=== PATIENT | female | born 1985 | race Two or more races ===

== ENCOUNTER 2016-12-15 21:27 | Inpatient (IN) | payer MEDICAID ==
[~2016-12-15] VITALS: Ht 30.5 cm; Wt 77.1 kg
[2016-12-15 22:11] LABS: Basophils # (auto) 0 uL; Basophils % (auto) 0.3 % (0.0-2.0); Eosinophils # (auto) 0 uL; Eosinophils % (auto) 0.1 % (0.0-7.0); Hematocrit 42.7 % (36.0-46.0); Hemoglobin 14.4 g/dL (12.2-16.2); Lymphocytes # (auto) 1.4 uL; Lymphocytes % (auto) 13.8 % (10.0-50.0); Mean Corpuscular Hemoglobin 30.6 pg (28.0-32.0); Mean Corpuscular Hgb Conc. 33.6 g/dL (32.0-36.0); Mean Platelet Volume 7.9 fL (7.4-10.4); Monocytes # (auto) 0.4 uL; Monocytes % (auto) 3.5 % (0.0-12.0); Neutrophils # (auto) 8.6 uL; Neutrophils % (auto) 82.3 % (37.0-80.0); Platelet Count (auto) 407 10^3/uL (140-450); Red Cell Distribution Width 14.8 % (11.6-16.0); White Blood Cell 10.4 10^3/uL (4.4-10.8)
[2016-12-15] MEDS ORDERED: SODIUM CHLORIDE 0.9% 2,000 ML IV ONE (22:45)
[2016-12-15 23:02] LABS: Albumin 4.5 g/dL (3.4-5.0); Anion Gap 16 (5-15); Aspartate Aminotransferase 18 U/L (15-37); BUN/Creatinine Ratio 15.7; Blood Urea Nitrogen 13 mg/dL (7-18); Calcium 8.3 mg/dL (8.5-10.1); Carbon Dioxide 18 mmol/L (21-32); Chloride 103 mmol/L (98-107); GFR African American 104 mL/min; GFR Non-African American 86 mL/min; Glucose 184 mg/dL (74-106); Sodium 137 mmol/L (136-145)
[2016-12-15 23:05] LABS: Alkaline Phosphatase 80 U/L (45-117); Bilirubin, Total < 0.1 mg/dL (0.2-1.0); Total Protein 8.3 g/dL (6.4-8.2)
[2016-12-15 23:16] LABS: Acetaminophen 106.6 ug/mL (10-30); Salicylate 30.4 mg/dL (2.8-20.0)
[2016-12-15 23:18] LABS: Potassium 2.8 mmol/L (3.5-5.1)
[2016-12-15] MEDS ORDERED: ONDANSETRON HCL 4 MG/2 ML VIAL IV ONE (23:30)
[2016-12-15] MEDS ORDERED: POTASSIUM CHL 20 Meq TABLET PO ONE (23:30)
[2016-12-15] MEDS ORDERED: ACETYLCYSTEINE IV ONE (23:30)
[2016-12-15] MEDS ORDERED: D5W 5% IV ONE (23:30)
[2016-12-15] MEDS ORDERED: SODIUM BICARBONATE 8.4 % INJ 50ML VIAL IV ONE (23:30)
[2016-12-15] MEDS ORDERED: ACETYLCYSTEINE 200MG/ML IV SOLN 30ML IV ONE ×2 (23:40→23:43)
[2016-12-16] MEDS ORDERED: ACETYLCYSTEINE IV ONE (00:30)
[2016-12-16] MEDS ORDERED: D5W 5% IV ONE (00:30)
[2016-12-16] MEDS ORDERED: POTASSIUM PHOSPHATE 30 MEQ in SODIUM CHL 0.9% 100 ML IV ONE (01:15)
[2016-12-16] MEDS ORDERED: D5W/SOD CHLO 0.9% 1,000 ML IV ONE (01:15)
[2016-12-16] MEDS ORDERED: SODIUM BICARBONATE 8.4 % INJ 50ML VIAL IV ONE (01:15)
[2016-12-16] MEDS ORDERED: ACETYLCYSTEINE 200MG/ML IV SOLN 30ML IV ONE (01:34)
[2016-12-16] MEDS ORDERED: POTASSIUM CHL 20MEQ/100ML 100 ML IV ONE ×2 (01:55→02:30)
[2016-12-16 04:20] LABS: Urine Bilirubin Negative (Negative); Urine Color Colorless (Yellow); Urine Mucus FEW (None Seen); Urine RBC 4 /hpf (0 - 4); Urine Squamous Epithelial Cell FEW /hpf (<5); Urine Urobilinogen Normal (Negative)
[2016-12-16 04:22] LABS: Urine Blood 1+ /uL (Negative); Urine Glucose 4+ mg/dL (Normal); Urine Ketone 4+ (Negative); Urine Nitrite POSITIVE (Negative)
[2016-12-16] MEDS: D5W 5% IV SCH ×2 (04:30→21:22)
[2016-12-16] MEDS: ACETYLCYSTEINE IV SCH ×2 (04:30→21:22)
[2016-12-16 05:14] LABS: BUN/Creatinine Ratio 9.7; Calcium 7.5 mg/dL (8.5-10.1); Potassium 3.2 mmol/L (3.5-5.1)
[2016-12-16 05:16] LABS: Acetaminophen 36.8 ug/mL (10-30); Salicylate 21.3 mg/dL (2.8-20.0)
[2016-12-16] MEDS ORDERED: DEXTROSE (50%) 50ML SYRG IV PRN ×2 (06:45→07:00)
[2016-12-16] MEDS ORDERED: SODIUM CHLORIDE 0.9% 1,000 ML IV ONE (06:45)
[2016-12-16 10:31] LABS: Salicylate 15.1 mg/dL (2.8-20.0)
[2016-12-16] MEDS: InsuLIN REG 1unit/0.01ml Soln (100units/ml) SC SCH ×2 (12:00→18:00)
[2016-12-16] MEDS: ACCU-CHEK COMFORT CURVE STRIP VI SCH ×2 (12:00→18:00)
[2016-12-16] MEDS ORDERED: ACCU-CHEK COMFORT CURVE STRIP VI SCH (12:00)
[2016-12-16] MEDS ORDERED: InsuLIN REG 1unit/0.01ml Soln (100units/ml) SC SCH (12:00)
[2016-12-16 14:33] LABS: Acetaminophen 3.4 ug/mL (10-30)
[2016-12-16] MEDS ORDERED: cefTRIAXone 1GM/50ML D5W 50 ML IV ONE (16:30)
[2016-12-17] MEDS: ACCU-CHEK COMFORT CURVE STRIP VI SCH ×3 (00:16→12:56)
[2016-12-17 04:05] LABS: Basophils # (auto) 0 uL; Basophils % (auto) 0.4 % (0.0-2.0); Eosinophils # (auto) 0.1 uL; Eosinophils % (auto) 0.5 % (0.0-7.0); Hematocrit 43.8 % (36.0-46.0); Hemoglobin 14.6 g/dL (12.2-16.2); Lymphocytes # (auto) 1.7 uL; Lymphocytes % (auto) 18.4 % (10.0-50.0); Mean Corpuscular Hemoglobin 30.2 pg (28.0-32.0); Mean Corpuscular Hgb Conc. 33.2 g/dL (32.0-36.0); Mean Corpuscular Volume 90.9 fL (80.0-100.0); Mean Platelet Volume 7.8 fL (7.4-10.4); Monocytes # (auto) 0.5 uL; Monocytes % (auto) 5.7 % (0.0-12.0); Platelet Count (auto) 446 10^3/uL (140-450); Red Cell Distribution Width 15.1 % (11.6-16.0); White Blood Cell 9.4 10^3/uL (4.4-10.8)
[2016-12-17 04:37] LABS: Albumin 3.9 g/dL (3.4-5.0); Anion Gap 11 (5-15); Aspartate Aminotransferase 12 U/L (15-37); BUN/Creatinine Ratio 16.1; Bilirubin, Direct < 0.1 mg/dL (0-0.2); Blood Urea Nitrogen 14 mg/dL (7-18); Calcium 8.7 mg/dL (8.5-10.1); Carbon Dioxide 24 mmol/L (21-32); Chloride 105 mmol/L (98-107); GFR African American 98 mL/min; GFR Non-African American 81 mL/min; Glucose 136 mg/dL (74-106); Potassium 3.6 mmol/L (3.5-5.1); Sodium 140 mmol/L (136-145)
[2016-12-17 04:40] LABS: Alkaline Phosphatase 79 U/L (45-117); Bilirubin, Total 0.2 mg/dL (0.2-1.0); Total Protein 7.6 g/dL (6.4-8.2)
[2016-12-17] MEDS: InsuLIN REG 1unit/0.01ml Soln (100units/ml) SC SCH ×3 (06:21→12:57)
[2016-12-17] MEDS ORDERED: cefTRIAXone 1GM/50ML D5W 50 ML IV SCH (09:00)
[2016-12-17] MEDS: D5W 5% IV SCH (13:00)
[2016-12-17] MEDS: ACETYLCYSTEINE IV SCH (13:00)
[2016-12-17 15:29] VITALS: BP 109/61
[2016-12-17 16:33] VITALS: BP 100/59
== END 2016-12-17 17:00 | DRG 812 ==
LOC: ER 21:30 → OVERFLOW 21:31
PROVIDERS: ADMIT Family Medicine; ATTEND Internal Medicine
DX: T39.1X1A Poisoning by 4-Aminophenol derivatives, accidental (unintentional), initial encounter (principal); F33.3 Major depressive disorder, recurrent, severe with psychotic symptoms; R45.851 Suicidal ideations; E87.6 Hypokalemia; F41.9 Anxiety disorder, unspecified; N39.0 Urinary tract infection, site not specified; E11.9 Type 2 diabetes mellitus without complications; Z91.5 Personal history of self-harm; Y92.89 Other specified places as the place of occurrence of the external cause
CPT/HCPCS: 36415; 36600; 71010; 80048; 80053; 80076; 80320; 80329; 81001; 81025; 82805; 82962; 83036; 85025; 93005; 96361; 96374; 96375; 96376; G0434; J0696; J1815; J2405; J3480; J7060

== ENCOUNTER 2018-05-23 03:59 | Emergency (ER) | payer MEDICAID ==
[~2018-05-23] VITALS: Ht 157.5 cm; Wt 104.3 kg
[2018-05-23 04:13] VITALS: BP 107/60
== END 2018-05-23 04:36 ==
LOC: ER 04:02
DX: F10.129 Alcohol abuse with intoxication, unspecified (principal); F15.10 Other stimulant abuse, uncomplicated; Y90.9 Presence of alcohol in blood, level not specified

== ENCOUNTER 2018-08-14 22:12 | Emergency (ER) | payer MEDICAID ==
[~2018-08-14] VITALS: Ht 157.5 cm; Wt 90.7 kg
[2018-08-14] MEDS ORDERED: SODIUM CHLORIDE 0.9% 1,000 ML IVB ONE (22:29)
[2018-08-14 22:55] LABS: Basophils # (auto) 0 uL; Basophils % (auto) 0.5 % (0.0-2.0); Eosinophils # (auto) 0 uL; Eosinophils % (auto) 0.3 % (0.0-7.0); Hematocrit 42.4 % (36.0-46.0); Hemoglobin 14.3 g/dL (12.2-16.2); Lymphocytes # (auto) 1.4 uL; Lymphocytes % (auto) 22.4 % (10.0-50.0); Mean Corpuscular Hemoglobin 30.4 pg (28.0-32.0); Mean Corpuscular Hgb Conc. 33.7 g/dL (32.0-36.0); Mean Corpuscular Volume 90.4 fL (80.0-100.0); Monocytes # (auto) 0.4 uL; Monocytes % (auto) 6.8 % (0.0-12.0); Neutrophils # (auto) 4.4 uL; Platelet Count (auto) 409 10^3/uL (140-450); Red Blood Cells 4.69 10^6/uL (4.0-5.20); Red Cell Distribution Width 13.4 % (11.8-14.3); White Blood Cell 6.3 10^3/uL (4.4-10.8)
[2018-08-14 23:11] LABS: BUN/Creatinine Ratio 8.6; Calcium 8.1 mg/dL (8.5-10.1); Potassium 3.3 mmol/L (3.5-5.1)
[2018-08-14 23:14] LABS: Bilirubin, Total 0.2 mg/dL (0.2-1.0); Total Protein 7.6 g/dL (6.4-8.2)
[2018-08-14 23:30] VITALS: BP 131/68
[2018-08-15] MEDS ORDERED: THIAMINE INJ 100 MG, MULTIPLE VITAMIN 10 ML, FOLIC ACID 1 MG, MAGNESIUM SULF SDV 50% 8 ... IV STA ×5 (00:04)
== END 2018-08-15 02:43 | disposition home or self-care (01) ==
LOC: ER 22:12 → EDUNIT# 22:12 → EDBD 22:12 → ER 08-15 02:43
DX: S02.2XXA Fracture of nasal bones, initial encounter for closed fracture (principal); F15.90 Other stimulant use, unspecified, uncomplicated; G92 Toxic encephalopathy; R04.0 Epistaxis; V48.9XXA Unspecified car occupant injured in noncollision transport accident in traffic accident, initial encounter; Y93.89 Activity, other specified; Y99.8 Other external cause status; Y92.89 Other specified places as the place of occurrence of the external cause
CPT/HCPCS: 36415; 70450; 70486; 72125; 80053; 80320; 85025; 99285; J7030

== ENCOUNTER 2019-05-16 01:35 | Emergency (ER) | payer MEDICAID ==
[~2019-05-16] VITALS: Ht 157.5 cm; Wt 89.8 kg
[2019-05-16 02:36] VITALS: BP 117/79
[2019-05-16] MEDS ORDERED: MECLIZINE HCL 25 MG TAB PO ONE (02:45)
[2019-05-16] MEDS ORDERED: PYRIDOXINE HCL 50 MG TAB PO ONE (02:45)
== END 2019-05-16 03:15 | disposition left against medical advice (07) ==
LOC: ER 01:42
DX: O21.8 Other vomiting complicating pregnancy (principal); Z3A.17 17 weeks gestation of pregnancy; Z53.21 Procedure and treatment not carried out due to patient leaving prior to being seen by health care provider